=== PATIENT | female | born 1950 | race Caucasian/White ===

== ENCOUNTER 2019-07-26 19:34 | Inpatient (IN) ==
[2019-07-26] MEDS ORDERED: diazePAM 10 MG/2 ML SYRINGE IVP STA (19:48)
[2019-07-26] MEDS ORDERED: *HR* OxyCODONE/APAP 10/325 TABLET PO ONE (22:32)
[2019-07-26] MEDS ORDERED: diazePAM 2 MG TABLET PO STA (22:32)
[2019-07-27 00:04] LABS: Hematocrit 39.7 % (35.3-44.9); Hemoglobin 12.7 g/dL (11.5-15.4); Immature Granulocytes % 0.3 % (0-4); Lymphocytes % 20.4 %; Mean Corpuscular Hemoglobin 28.5 pg (28.0-33.3); Mean Platelet Volume 9.8 fL (9.4-12.4); Monocytes % 3.7 %; Platelet Count 254 K/mcL (140-400); Red Blood Count 4.46 M/mcL (3.82-4.97); Red Cell Distribution Width 12.6 % (11.5-14.5); White Blood Count 6.2 K/mcL (4.3-11.1)
[2019-07-27 00:05] LABS: Basophils % 0.6 %; Eosinophils # 0.1 K/mcL (0.0-0.6); Lymphocytes # 1.3 K/mcL (0.6-4.6); Monocytes # 0.2 K/mcL (0.0-1.3); Neutrophils # 4.6 K/mcL (1.6-8.9)
[2019-07-27 00:19] LABS: Calcium 9.6 mg/dL (8.6-10.3); Potassium 4.7 mEq/L (3.5-5.1)
[2019-07-27] MEDS ORDERED: Naloxone 0.4 MG/ML INJ IVP PRN (03:34)
[2019-07-27] MEDS ORDERED: Dextrose Gel 15 GM/37.5 ML TUBE PO PRN ×2 (03:36)
[2019-07-27] MEDS ORDERED: *HR* Dextrose 50 % in Water (Syg) 50 ML SYRINGE IVP PRN (03:36)
[2019-07-27] MEDS ORDERED: D5% in Water 1,000 ML IVC PRN (03:36)
[2019-07-27] MEDS ORDERED: 0.9 % Sodium Chloride 1,000 ML IVC ONE (03:37)
[2019-07-27] MEDS: *HR* HYDROmorphone 2 MG/ML SYRINGE IVP PRN ×4 (03:43→20:24)
[2019-07-27 05:44] LABS: Hematocrit 35.7 % (35.3-44.9); Mean Corpuscular HGB Conc 31.1 g/dL (31.6-35.5); Mean Corpuscular Hemoglobin 28.2 pg (28.0-33.3); Mean Corpuscular Volume 90.8 fL (83.0-100.0); Platelet Count 231 K/mcL (140-400); Red Blood Count 3.93 M/mcL (3.82-4.97); Red Cell Distribution Width 12.6 % (11.5-14.5); White Blood Count 5.4 K/mcL (4.3-11.1)
[2019-07-27 05:49] LABS: Hemoglobin 11.1 g/dL (11.5-15.4)
[2019-07-27 06:01] LABS: Calcium 9.3 mg/dL (8.6-10.3); Potassium 4.6 mEq/L (3.5-5.1)
[2019-07-27] MEDS ORDERED: Ondansetron 4 MG/2 ML VIAL IVP PRN (08:37)
[2019-07-27] MEDS: Insulin LISPRO 300 UNITS/3 ML VIAL SQ SCH ×4 (08:52→20:34)
[2019-07-27] MEDS ORDERED: *HR* OxyCODONE Immed Rel 5 MG TABLET PO PRN (15:05)
[2019-07-27] MEDS: *HR* Heparin 5,000 UNIT/ML VIAL SQ SCH (16:28)
[2019-07-27 17:24] LABS: Bilirubin,Urine Negative (Negative); Blood,Urine Negative (Negative); Clarity,Urine Cloudy (Clear); Color,Urine Yellow (Yellow); Glucose,Urine (UA) Normal (Normal); Ketones,Urine Negative (Negative); Leukocyte Esterase,Urine Moderate (Negative); Nitrite,Urine Negative (Negative); PH,Urine 5.5 pH Units (5.0-8.0); Protein,Urine Negative (Neg-Trace); Specific Gravity,Urine 1.012 (1.010-1.025); Urobilinogen,Urine Normal (Normal)
[2019-07-27 17:26] LABS: Bacteria,Urine Moderate per hpf (None-Few); Hyaline Casts,Urine None Seen per lpf (None-Few); RBC,Urine 0-3 per hpf (0-3); Squamous Epithelial Cell,Urine Moderate per lpf (None-Few); WBC,Urine 15-30 per hpf (0-3)
[2019-07-28] MEDS: *HR* HYDROmorphone 2 MG/ML SYRINGE IVP PRN ×4 (00:47→20:37)
[2019-07-28] MEDS: *HR* Heparin 5,000 UNIT/ML VIAL SQ SCH ×2 (06:01→17:34)
[2019-07-28 06:03] LABS: Calcium 8.9 mg/dL (8.6-10.3); Potassium 4.5 mEq/L (3.5-5.1)
[2019-07-28] MEDS ORDERED: Furosemide 40 MG TABLET PO SCH (09:00)
[2019-07-28] MEDS ORDERED: FLUoxetine 20 MG CAPSULE PO SCH (09:00)
[2019-07-28] MEDS: Aspirin Enteric Coated 81 MG Tablet PO SCH (09:15)
[2019-07-28] MEDS: Gabapentin 100 MG CAPSULE PO SCH (09:15)
[2019-07-28] MEDS: Insulin LISPRO 300 UNITS/3 ML VIAL SQ SCH ×4 (09:16→20:31)
[2019-07-29] MEDS: *HR* Heparin 5,000 UNIT/ML VIAL SQ SCH ×2 (05:57→18:37)
[2019-07-29 06:25] LABS: Basophils # 0.1 K/mcL (0.0-0.2); Basophils % 1.1 %; Eosinophils # 0.2 K/mcL (0.0-0.6); Eosinophils % 3.3 %; Hematocrit 34.8 % (35.3-44.9); Hemoglobin 11.1 g/dL (11.5-15.4); Immature Granulocytes % 0.2 % (0-4); Lymphocytes # 1.7 K/mcL (0.6-4.6); Lymphocytes % 38.4 %; Mean Corpuscular HGB Conc 31.9 g/dL (31.6-35.5); Mean Corpuscular Hemoglobin 28.5 pg (28.0-33.3); Mean Corpuscular Volume 89.2 fL (83.0-100.0); Mean Platelet Volume 9.5 fL (9.4-12.4); Monocytes # 0.4 K/mcL (0.0-1.3); Monocytes % 8.2 %; Neutrophils # 2.2 K/mcL (1.6-8.9); Platelet Count 218 K/mcL (140-400); Red Cell Distribution Width 12.7 % (11.5-14.5); Segmented Neutrophils % 48.8 %; White Blood Count 4.5 K/mcL (4.3-11.1)
[2019-07-29 06:44] LABS: Calcium 9.2 mg/dL (8.6-10.3); Potassium 4.7 mEq/L (3.5-5.1)
[2019-07-29] MEDS: Pyridoxine (B-6) 50 MG TABLET PO SCH (09:22)
[2019-07-29] MEDS: Cholecalciferol (D-3) 1,000 UNIT (25MCG) TABLET PO SCH (09:22)
[2019-07-29] MEDS: FLUoxetine 20 MG CAPSULE PO SCH (09:22)
[2019-07-29] MEDS: Aspirin Enteric Coated 81 MG Tablet PO SCH (09:22)
[2019-07-29] MEDS: Insulin LISPRO 300 UNITS/3 ML VIAL SQ SCH ×4 (09:23→21:34)
[2019-07-29] MEDS: *HR* OxyCODONE/APAP 5/325 TABLET PO PRN ×3 (09:23→21:34)
[2019-07-29] MEDS: Gabapentin 100 MG CAPSULE PO SCH ×3 (09:29→21:34)
[2019-07-29] MEDS: cefTRIAXone 1,000 MG in Water for inj. (sterile) 10 ML IVP SCH (11:58)
[2019-07-29] MEDS ORDERED: Gabapentin 100 MG CAPSULE PO SCH (21:00)
[2019-07-29] MEDS: Insulin DETEMIR 100 UNIT/ML X5UNITS SQ SCH (21:34)
[2019-07-30] MEDS: *HR* OxyCODONE/APAP 5/325 TABLET PO PRN ×3 (05:21→20:48)
[2019-07-30] MEDS: *HR* Heparin 5,000 UNIT/ML VIAL SQ SCH ×2 (05:22→16:59)
[2019-07-30 07:40] LABS: Calcium 9.1 mg/dL (8.6-10.3); Potassium 4.6 mEq/L (3.5-5.1)
[2019-07-30] MEDS: Pyridoxine (B-6) 50 MG TABLET PO SCH (08:55)
[2019-07-30] MEDS: Cholecalciferol (D-3) 1,000 UNIT (25MCG) TABLET PO SCH (08:55)
[2019-07-30] MEDS: Gabapentin 100 MG CAPSULE PO SCH ×3 (08:55→20:48)
[2019-07-30] MEDS: FLUoxetine 20 MG CAPSULE PO SCH (08:56)
[2019-07-30] MEDS: Aspirin Enteric Coated 81 MG Tablet PO SCH (08:56)
[2019-07-30] MEDS: cefTRIAXone 1,000 MG in Water for inj. (sterile) 10 ML IVP SCH (08:56)
[2019-07-30] MEDS: Insulin LISPRO 300 UNITS/3 ML VIAL SQ SCH ×4 (09:14→20:48)
[2019-07-30] MEDS: Acetaminophen 325 MG TABLET PO PRN ×2 (10:31→15:56)
[2019-07-30] MEDS ORDERED: Morphine Sulfate 2 MG/ML SYRINGE IVP ONE (16:13)
[2019-07-30] MEDS: Insulin DETEMIR 100 UNIT/ML X5UNITS SQ SCH (20:47)
[2019-07-31] MEDS: *HR* OxyCODONE/APAP 5/325 TABLET PO PRN ×4 (03:22→21:42)
[2019-07-31] MEDS: *HR* Heparin 5,000 UNIT/ML VIAL SQ SCH ×2 (05:38→17:23)
[2019-07-31] MEDS: Insulin LISPRO 300 UNITS/3 ML VIAL SQ SCH ×4 (08:29→20:48)
[2019-07-31] MEDS: Furosemide 40 MG TABLET PO SCH (09:05)
[2019-07-31] MEDS: Gabapentin 100 MG CAPSULE PO SCH ×3 (09:05→21:42)
[2019-07-31] MEDS: Pyridoxine (B-6) 50 MG TABLET PO SCH (09:05)
[2019-07-31] MEDS: Cholecalciferol (D-3) 1,000 UNIT (25MCG) TABLET PO SCH (09:06)
[2019-07-31] MEDS: FLUoxetine 20 MG CAPSULE PO SCH (09:06)
[2019-07-31] MEDS: Aspirin Enteric Coated 81 MG Tablet PO SCH (09:07)
[2019-07-31] MEDS: cefTRIAXone 1,000 MG in Water for inj. (sterile) 10 ML IVP SCH (09:07)
[2019-07-31 11:43] LABS: Hematocrit 34.3 % (35.3-44.9); Hemoglobin 10.7 g/dL (11.5-15.4); Mean Corpuscular HGB Conc 31.2 g/dL (31.6-35.5); Mean Corpuscular Hemoglobin 28.8 pg (28.0-33.3); Mean Corpuscular Volume 92.2 fL (83.0-100.0); Mean Platelet Volume 10.3 fL (9.4-12.4); Platelet Count 225 K/mcL (140-400); Red Blood Count 3.72 M/mcL (3.82-4.97); Red Cell Distribution Width 12.5 % (11.5-14.5); White Blood Count 4.4 K/mcL (4.3-11.1)
[2019-07-31 11:57] LABS: Albumin 3.4 g/dL (3.5-5.7); Albumin/Globulin Ratio 1.4 (1.1-2.2); Bilirubin,Total 0.4 mg/dL (0.3-1.0); Calcium 9.1 mg/dL (8.6-10.3); Globulin 2.4 g/dL (2.4-3.5); Potassium 4.7 mEq/L (3.5-5.1); Total Protein 5.8 g/dL (6.4-8.9)
[2019-07-31] MEDS: Sennosides 8.6 MG TABLET PO SCH (15:37)
[2019-07-31] MEDS: Insulin DETEMIR 100 UNIT/ML X5UNITS SQ SCH (21:42)
[2019-08-01] MEDS: *HR* Heparin 5,000 UNIT/ML VIAL SQ SCH ×2 (05:55→20:49)
[2019-08-01] MEDS: Aspirin Enteric Coated 81 MG Tablet PO SCH (07:19)
[2019-08-01] MEDS: Cholecalciferol (D-3) 1,000 UNIT (25MCG) TABLET PO SCH (07:19)
[2019-08-01] MEDS: Furosemide 40 MG TABLET PO SCH (07:19)
[2019-08-01] MEDS: Gabapentin 100 MG CAPSULE PO SCH ×3 (07:19→20:52)
[2019-08-01] MEDS: Pyridoxine (B-6) 50 MG TABLET PO SCH (07:19)
[2019-08-01] MEDS: Sennosides 8.6 MG TABLET PO SCH (07:20)
[2019-08-01] MEDS: cefTRIAXone 1,000 MG in Water for inj. (sterile) 10 ML IVP SCH (07:20)
[2019-08-01] MEDS: FLUoxetine 20 MG CAPSULE PO SCH (07:20)
[2019-08-01] MEDS: *HR* OxyCODONE/APAP 5/325 TABLET PO PRN (07:22)
[2019-08-01] MEDS: Insulin LISPRO 300 UNITS/3 ML VIAL SQ SCH ×3 (07:24→20:49)
[2019-08-01] MEDS ORDERED: *HR* OxyCODONE Immed Rel 5 MG TABLET ONE (11:36)
[2019-08-01] MEDS ORDERED: *HR* HYDROmorphone 2 MG/ML SYRINGE ONE (16:35)
[2019-08-01] MEDS ORDERED: predniSONE 20 MG TABLET ONE (17:46)
[2019-08-01] MEDS: *HR* HYDROmorphone 2 MG/ML SYRINGE IVP PRN (20:52)
[2019-08-01] MEDS: Insulin DETEMIR 100 UNIT/ML X5UNITS SQ SCH (20:52)
[2019-08-01] MEDS ORDERED: *HR* OxyCODONE Immed Rel 5 MG TABLET PO PRN (21:35)
[2019-08-01] MEDS ORDERED: *HR* HYDROmorphone (PF) 1 MG/ML SYRINGE IVP PRN (21:36)
[2019-08-02] MEDS: *HR* HYDROmorphone 2 MG/ML SYRINGE IVP PRN ×2 (06:05→09:39)
[2019-08-02] MEDS: *HR* Heparin 5,000 UNIT/ML VIAL SQ SCH ×2 (06:05→17:07)
[2019-08-02] MEDS ORDERED: predniSONE 20 MG TABLET PO SCH (09:00)
[2019-08-02] MEDS: FLUoxetine 20 MG CAPSULE PO SCH (09:37)
[2019-08-02] MEDS: Sennosides 8.6 MG TABLET PO SCH (09:38)
[2019-08-02] MEDS: Furosemide 40 MG TABLET PO SCH (09:38)
[2019-08-02] MEDS: Cholecalciferol (D-3) 1,000 UNIT (25MCG) TABLET PO SCH (09:38)
[2019-08-02] MEDS: Gabapentin 100 MG CAPSULE PO SCH (09:39)
[2019-08-02] MEDS: Aspirin Enteric Coated 81 MG Tablet PO SCH (09:39)
[2019-08-02] MEDS: Insulin LISPRO 300 UNITS/3 ML VIAL SQ SCH ×4 (09:39→19:45)
[2019-08-02] MEDS: Pyridoxine (B-6) 50 MG TABLET PO SCH (09:39)
[2019-08-02] MEDS: cefTRIAXone 1,000 MG in Water for inj. (sterile) 10 ML IVP SCH (09:40)
[2019-08-02] MEDS: 0.9 % Sodium Chloride 1,000 ML IVC SCH (13:41)
[2019-08-02 15:00] LABS: Hematocrit 37.4 % (35.3-44.9); Hemoglobin 12.2 g/dL (11.5-15.4); Mean Corpuscular HGB Conc 32.6 g/dL (31.6-35.5); Mean Corpuscular Hemoglobin 28.7 pg (28.0-33.3); Mean Platelet Volume 9.7 fL (9.4-12.4); Platelet Count 258 K/mcL (140-400); Red Blood Count 4.25 M/mcL (3.82-4.97); Red Cell Distribution Width 12.7 % (11.5-14.5); White Blood Count 7.5 K/mcL (4.3-11.1)
[2019-08-02 15:20] LABS: Albumin 3.8 g/dL (3.5-5.7); Albumin/Globulin Ratio 1.4 (1.1-2.2); Bilirubin,Total 0.4 mg/dL (0.3-1.0); Calcium 9.6 mg/dL (8.6-10.3); Globulin 2.7 g/dL (2.4-3.5); Potassium 4.9 mEq/L (3.5-5.1); Total Protein 6.5 g/dL (6.4-8.9)
[2019-08-02] MEDS: *HR* OxyCODONE/APAP 10/325 TABLET PO PRN (17:06)
[2019-08-02] MEDS: MethylPREDNISolone 40 MG/ML VIAL IVP SCH ×2 (17:07→23:57)
[2019-08-02] MEDS: Gabapentin 300 MG CAPSULE PO SCH (19:44)
[2019-08-02] MEDS: Insulin DETEMIR 100 UNIT/ML X5UNITS SQ SCH (20:32)
[2019-08-03] MEDS: 0.9 % Sodium Chloride 1,000 ML IVC SCH (01:33)
[2019-08-03] MEDS: *HR* Heparin 5,000 UNIT/ML VIAL SQ SCH (05:12)
[2019-08-03] MEDS: Cholecalciferol (D-3) 1,000 UNIT (25MCG) TABLET PO SCH (07:32)
[2019-08-03] MEDS: Aspirin Enteric Coated 81 MG Tablet PO SCH (07:32)
[2019-08-03] MEDS: *HR* OxyCODONE/APAP 10/325 TABLET PO PRN (07:32)
[2019-08-03] MEDS: Furosemide 40 MG TABLET PO SCH (07:33)
[2019-08-03] MEDS: Sennosides 8.6 MG TABLET PO SCH (07:33)
[2019-08-03] MEDS: Gabapentin 300 MG CAPSULE PO SCH (07:33)
[2019-08-03] MEDS: FLUoxetine 20 MG CAPSULE PO SCH (07:33)
[2019-08-03] MEDS: cefTRIAXone 1,000 MG in Water for inj. (sterile) 10 ML IVP SCH (07:34)
[2019-08-03] MEDS: MethylPREDNISolone 40 MG/ML VIAL IVP SCH (07:34)
[2019-08-03] MEDS: Pyridoxine (B-6) 50 MG TABLET PO SCH (07:34)
[2019-08-03] MEDS: Insulin LISPRO 300 UNITS/3 ML VIAL SQ SCH (07:45)
[2019-08-03] MEDS ORDERED: Insulin LISPRO 300 UNITS/3 ML VIAL SQ SCH (08:49)
[2019-08-03] MEDS ORDERED: GI Cocktail 40 ML EACH PO PRN (10:36)
[2019-08-03] MEDS ORDERED: *HR* OxyCODONE/APAP 10/325 TABLET PO SCH (12:00)
[2019-08-03] MEDS ORDERED: Methocarbamol 500 MG TABLET PO PRN (13:02)
[2019-08-03] MEDS ORDERED: Acetaminophen 325 MG TABLET PO PRN (13:03)
[2019-08-03] MEDS ORDERED: Gabapentin 300 MG CAPSULE PO SCH (15:00)
[2019-08-03 15:14] VITALS: BP 160/75
[2019-08-03] MEDS ORDERED: MethylPREDNISolone 40 MG/ML VIAL IVP SCH (18:00)
[2019-08-03] MEDS ORDERED: Insulin DETEMIR 100 UNIT/ML X5UNITS SQ SCH (21:00)
== END 2019-08-03 17:15 | DRG 552 ==
LOC: 3BNU 19:34 → EMEROOARM 19:34 → SUATTDRO 07-27 01:42 → 3BNU 07-27 01:54
PROVIDERS: ADMIT Internal Medicine; ATTEND Internal Medicine

== ENCOUNTER 2019-08-21 14:33 | Inpatient (IN) ==
[2019-08-21] MEDS ORDERED: Ondansetron 4 MG/2 ML VIAL IVP ONE (16:21)
[2019-08-21] MEDS ORDERED: Dexamethasone 4 MG/ML VIAL IVP ONE (16:21)
[2019-08-21] MEDS ORDERED: *HR* FentaNYL (PF) 100 MCG/2 ML VIAL IVP ONE (16:21)
[2019-08-21 19:39] LABS: Hematocrit 37.1 % (35.3-44.9); Hemoglobin 11.5 g/dL (11.5-15.4); Mean Corpuscular Hemoglobin 28.5 pg (28.0-33.3); Mean Corpuscular Volume 92.1 fL (83.0-100.0); Mean Platelet Volume 9.8 fL (9.4-12.4); Platelet Count 236 K/mcL (140-400); Red Blood Count 4.03 M/mcL (3.82-4.97); Red Cell Distribution Width 13.5 % (11.5-14.5); White Blood Count 4.8 K/mcL (4.3-11.1)
[2019-08-21 19:57] LABS: Calcium 9.4 mg/dL (8.6-10.3); Potassium 4.9 mEq/L (3.5-5.1)
[2019-08-21] MEDS ORDERED: Naloxone 0.4 MG/ML INJ IVP PRN (21:25)
[2019-08-21] MEDS ORDERED: Dextrose Gel 15 GM/37.5 ML TUBE PO PRN ×2 (21:58)
[2019-08-21] MEDS ORDERED: *HR* Dextrose 50 % in Water (Syg) 50 ML SYRINGE IVP PRN (21:58)
[2019-08-21] MEDS ORDERED: D5% in Water 1,000 ML IVC PRN (21:58)
[2019-08-21] MEDS: *HR* OxyCODONE Immed Rel 5 MG TABLET PO PRN (22:23)
[2019-08-22] MEDS: *HR* OxyCODONE Immed Rel 5 MG TABLET PO PRN ×3 (05:23→18:37)
[2019-08-22 07:12] LABS: Mean Corpuscular HGB Conc 30.6 g/dL (31.6-35.5); Mean Corpuscular Hemoglobin 28.3 pg (28.0-33.3); Mean Corpuscular Volume 92.5 fL (83.0-100.0); Mean Platelet Volume 10.1 fL (9.4-12.4); Platelet Count 273 K/mcL (140-400); Red Blood Count 3.89 M/mcL (3.82-4.97); Red Cell Distribution Width 13.5 % (11.5-14.5); White Blood Count 4.5 K/mcL (4.3-11.1)
[2019-08-22 07:32] LABS: Calcium 9.3 mg/dL (8.6-10.3); Potassium 5.3 mEq/L (3.5-5.1)
[2019-08-22] MEDS ORDERED: traMADol 50 MG TABLET PO ONE (08:35)
[2019-08-22] MEDS: Insulin LISPRO 300 UNITS/3 ML VIAL SQ SCH ×4 (08:46→22:18)
[2019-08-22] MEDS: Aspirin Enteric Coated 81 MG Tablet PO SCH (08:46)
[2019-08-22] MEDS: Dexamethasone 10 MG/ML VIAL IVP SCH (08:46)
[2019-08-22] MEDS: FLUoxetine 20 MG CAPSULE PO SCH (08:46)
[2019-08-22] MEDS: Insulin DETEMIR 100 UNIT/ML X5UNITS SQ SCH ×2 (11:30→22:19)
[2019-08-22 12:44] LABS: Bilirubin,Urine Negative (Negative); Blood,Urine Negative (Negative); Clarity,Urine Clear (Clear); Color,Urine Yellow (Yellow); Glucose,Urine (UA) 500 mg/dL (Normal); Ketones,Urine 15 mg/dL (Negative); Leukocyte Esterase,Urine Negative (Negative); Nitrite,Urine Negative (Negative); Protein,Urine Negative (Neg-Trace); Specific Gravity,Urine 1.016 (1.010-1.025); Urobilinogen,Urine Normal (Normal)
[2019-08-22] MEDS: *HR* Heparin 5,000 UNIT/ML VIAL SQ SCH (17:29)
[2019-08-23] MEDS: *HR* OxyCODONE Immed Rel 5 MG TABLET PO PRN ×4 (00:53→20:22)
[2019-08-23] MEDS: *HR* Heparin 5,000 UNIT/ML VIAL SQ SCH ×2 (05:54→17:36)
[2019-08-23 06:58] LABS: Hematocrit 32.6 % (35.3-44.9); Hemoglobin 10.7 g/dL (11.5-15.4); Immature Granulocytes % 0.4 % (0-4); Lymphocytes % 13.8 %; Mean Corpuscular HGB Conc 32.8 g/dL (31.6-35.5); Mean Corpuscular Hemoglobin 29.2 pg (28.0-33.3); Mean Corpuscular Volume 89.1 fL (83.0-100.0); Mean Platelet Volume 10.1 fL (9.4-12.4); Monocytes # 0.3 K/mcL (0.0-1.3); Monocytes % 3.4 %; Neutrophils # 6.1 K/mcL (1.6-8.9); Platelet Count 286 K/mcL (140-400); Red Blood Count 3.66 M/mcL (3.82-4.97); Red Cell Distribution Width 13.2 % (11.5-14.5); Segmented Neutrophils % 82.4 %
[2019-08-23 07:00] LABS: White Blood Count 7.4 K/mcL (4.3-11.1)
[2019-08-23 07:23] LABS: Magnesium 2.1 mg/dL (1.6-2.6); Phosphorous 3.3 mg/dL (2.7-4.5); Potassium 5.1 mEq/L (3.5-5.1)
[2019-08-23] MEDS: FLUoxetine 20 MG CAPSULE PO SCH (09:43)
[2019-08-23] MEDS: Insulin LISPRO 300 UNITS/3 ML VIAL SQ SCH ×4 (09:43→20:23)
[2019-08-23] MEDS: Aspirin Enteric Coated 81 MG Tablet PO SCH (09:43)
[2019-08-23] MEDS: Dexamethasone 10 MG/ML VIAL IVP SCH (09:44)
[2019-08-23] MEDS: Insulin DETEMIR 100 UNIT/ML X5UNITS SQ SCH ×2 (09:48→20:23)
[2019-08-24] MEDS: *HR* OxyCODONE Immed Rel 5 MG TABLET PO PRN ×3 (04:02→17:08)
[2019-08-24] MEDS: *HR* Heparin 5,000 UNIT/ML VIAL SQ SCH ×2 (05:08→17:08)
[2019-08-24 05:40] LABS: Calcium 9.1 mg/dL (8.6-10.3); Phosphorous 3.7 mg/dL (2.7-4.5); Potassium 5.5 mEq/L (3.5-5.1)
[2019-08-24] MEDS: predniSONE 20 MG TABLET PO SCH (09:07)
[2019-08-24] MEDS: Aspirin Enteric Coated 81 MG Tablet PO SCH (09:07)
[2019-08-24] MEDS: Furosemide 40 MG TABLET PO SCH (09:10)
[2019-08-24] MEDS: Insulin DETEMIR 100 UNIT/ML X5UNITS SQ SCH ×2 (09:11→20:43)
[2019-08-24] MEDS: FLUoxetine 20 MG CAPSULE PO SCH (09:11)
[2019-08-24] MEDS: Insulin LISPRO 300 UNITS/3 ML VIAL SQ SCH ×4 (09:12→20:37)
[2019-08-24] MEDS ORDERED: *HR* HYDROcodone/Acet 5/325 mg TABLET PO ONE (13:54)
[2019-08-24] MEDS ORDERED: Methocarbamol 500 MG TABLET PO PRN (16:03)
[2019-08-24] MEDS ORDERED: Acetaminophen 325 MG TABLET PO PRN (16:03)
[2019-08-24] MEDS: *HR* FentaNYL PATCH 12 MCG PATCH TD SCH (17:51)
[2019-08-25] MEDS: *HR* OxyCODONE Immed Rel 5 MG TABLET PO PRN ×3 (01:40→17:14)
[2019-08-25] MEDS: *HR* Heparin 5,000 UNIT/ML VIAL SQ SCH ×2 (05:33→17:15)
[2019-08-25 08:17] LABS: Magnesium 1.7 mg/dL (1.6-2.6); Potassium 4.2 mEq/L (3.5-5.1)
[2019-08-25] MEDS: predniSONE 20 MG TABLET PO SCH (08:36)
[2019-08-25] MEDS: Aspirin Enteric Coated 81 MG Tablet PO SCH (08:36)
[2019-08-25] MEDS: FLUoxetine 20 MG CAPSULE PO SCH (08:36)
[2019-08-25] MEDS: Multivit/Ca/Min/Fe/FA 1 TAB TABLET PO SCH (08:36)
[2019-08-25] MEDS: Furosemide 40 MG TABLET PO SCH (08:36)
[2019-08-25] MEDS: Cholecalciferol (D-3) 1,000 UNIT (25MCG) TABLET PO SCH (08:36)
[2019-08-25] MEDS: Insulin DETEMIR 100 UNIT/ML X5UNITS SQ SCH ×2 (08:40→20:42)
[2019-08-25] MEDS: Insulin LISPRO 300 UNITS/3 ML VIAL SQ SCH ×4 (08:40→20:43)
[2019-08-25] MEDS: Pyridoxine (B-6) 50 MG TABLET PO SCH (12:34)
[2019-08-25] MEDS: *HR* HYDROcodone/Acet 5/325 mg TABLET PO PRN ×2 (12:34→20:42)
[2019-08-25] MEDS: Methocarbamol 750 MG TABLET PO SCH (20:42)
[2019-08-25] MEDS: Gabapentin 300 MG CAPSULE PO SCH (20:42)
[2019-08-26] MEDS: *HR* Heparin 5,000 UNIT/ML VIAL SQ SCH ×2 (05:30→18:02)
[2019-08-26] MEDS: *HR* HYDROcodone/Acet 5/325 mg TABLET PO PRN ×3 (05:30→22:38)
[2019-08-26] MEDS: Insulin LISPRO 300 UNITS/3 ML VIAL SQ SCH ×5 (07:27→20:35)
[2019-08-26] MEDS: Insulin DETEMIR 100 UNIT/ML X5UNITS SQ SCH ×3 (08:28→20:34)
[2019-08-26] MEDS: Gabapentin 300 MG CAPSULE PO SCH ×2 (08:29→20:34)
[2019-08-26] MEDS: Aspirin Enteric Coated 81 MG Tablet PO SCH (08:29)
[2019-08-26] MEDS: Cholecalciferol (D-3) 1,000 UNIT (25MCG) TABLET PO SCH (08:29)
[2019-08-26] MEDS: FLUoxetine 20 MG CAPSULE PO SCH (08:29)
[2019-08-26] MEDS: predniSONE 20 MG TABLET PO SCH (08:29)
[2019-08-26] MEDS: Methocarbamol 750 MG TABLET PO SCH ×3 (08:30→20:34)
[2019-08-26] MEDS: Multivit/Ca/Min/Fe/FA 1 TAB TABLET PO SCH (08:30)
[2019-08-26] MEDS: Pyridoxine (B-6) 50 MG TABLET PO SCH (08:30)
[2019-08-26] MEDS: Furosemide 40 MG TABLET PO SCH (08:30)
[2019-08-27 04:39] LABS: Eosinophils % 0.6 %; Hematocrit 38.1 % (35.3-44.9); Hemoglobin 11.9 g/dL (11.5-15.4); Immature Granulocytes % 0.4 % (0-4); Lymphocytes # 1.4 K/mcL (0.6-4.6); Lymphocytes % 27.1 %; Mean Corpuscular HGB Conc 31.2 g/dL (31.6-35.5); Mean Corpuscular Hemoglobin 28.4 pg (28.0-33.3); Mean Corpuscular Volume 90.9 fL (83.0-100.0); Monocytes # 0.4 K/mcL (0.0-1.3); Neutrophils # 3.4 K/mcL (1.6-8.9); Platelet Count 222 K/mcL (140-400); Red Blood Count 4.19 M/mcL (3.82-4.97); Red Cell Distribution Width 13.2 % (11.5-14.5); Segmented Neutrophils % 64.9 %; White Blood Count 5.2 K/mcL (4.3-11.1)
[2019-08-27 05:01] LABS: Calcium 8.7 mg/dL (8.6-10.3); Magnesium 1.9 mg/dL (1.6-2.6); Potassium 3.9 mEq/L (3.5-5.1)
[2019-08-27] MEDS: *HR* Heparin 5,000 UNIT/ML VIAL SQ SCH ×2 (05:22→17:53)
[2019-08-27 08:26] LABS: Estimated Average Glucose 197 mg/dl
[2019-08-27] MEDS ORDERED: Ringers Solution, Lactated 1,000 ML IVC SCH (08:30)
[2019-08-27] MEDS: Insulin LISPRO 300 UNITS/3 ML VIAL SQ SCH ×4 (09:21→21:10)
[2019-08-27] MEDS: Cholecalciferol (D-3) 1,000 UNIT (25MCG) TABLET PO SCH (09:32)
[2019-08-27] MEDS: Gabapentin 300 MG CAPSULE PO SCH ×2 (09:33→21:09)
[2019-08-27] MEDS: Aspirin Enteric Coated 81 MG Tablet PO SCH (09:33)
[2019-08-27] MEDS: FLUoxetine 20 MG CAPSULE PO SCH (09:33)
[2019-08-27] MEDS: Furosemide 40 MG TABLET PO SCH (09:33)
[2019-08-27] MEDS: Methocarbamol 750 MG TABLET PO SCH ×3 (09:33→21:09)
[2019-08-27] MEDS: predniSONE 20 MG TABLET PO SCH (09:33)
[2019-08-27] MEDS: Multivit/Ca/Min/Fe/FA 1 TAB TABLET PO SCH (09:33)
[2019-08-27] MEDS: Pyridoxine (B-6) 50 MG TABLET PO SCH (09:35)
[2019-08-27] MEDS: *HR* OxyCODONE/APAP 10/325 TABLET PO PRN (09:39)
[2019-08-27] MEDS: Insulin DETEMIR 100 UNIT/ML X5UNITS SQ SCH ×2 (10:31→21:10)
[2019-08-27] MEDS: *HR* FentaNYL PATCH 12 MCG PATCH TD SCH (17:53)
[2019-08-28 01:17] LABS: Hematocrit 36.5 % (35.3-44.9); Hemoglobin 11.9 g/dL (11.5-15.4); Immature Granulocytes % 0.2 % (0-4); Lymphocytes # 0.8 K/mcL (0.6-4.6); Lymphocytes % 14.7 %; Mean Corpuscular HGB Conc 32.6 g/dL (31.6-35.5); Mean Corpuscular Hemoglobin 29.3 pg (28.0-33.3); Mean Corpuscular Volume 89.9 fL (83.0-100.0); Mean Platelet Volume 10.3 fL (9.4-12.4); Monocytes # 0.2 K/mcL (0.0-1.3); Monocytes % 4.4 %; Neutrophils # 4.5 K/mcL (1.6-8.9); Platelet Count 216 K/mcL (140-400); Red Blood Count 4.06 M/mcL (3.82-4.97); Red Cell Distribution Width 13.1 % (11.5-14.5); Segmented Neutrophils % 80.7 %; White Blood Count 5.5 K/mcL (4.3-11.1)
[2019-08-28 01:34] LABS: Calcium 8.1 mg/dL (8.6-10.3); Magnesium 1.7 mg/dL (1.6-2.6); Potassium 4.4 mEq/L (3.5-5.1)
[2019-08-28] MEDS: *HR* Heparin 5,000 UNIT/ML VIAL SQ SCH (05:56)
[2019-08-28 08:03] VITALS: BP 130/70
[2019-08-28] MEDS: predniSONE 20 MG TABLET PO SCH (08:19)
[2019-08-28] MEDS: *HR* HYDROcodone/Acet 5/325 mg TABLET PO PRN (08:19)
[2019-08-28] MEDS: FLUoxetine 20 MG CAPSULE PO SCH (08:19)
[2019-08-28] MEDS: Multivit/Ca/Min/Fe/FA 1 TAB TABLET PO SCH (08:20)
[2019-08-28] MEDS: Furosemide 40 MG TABLET PO SCH (08:20)
[2019-08-28] MEDS: Pyridoxine (B-6) 50 MG TABLET PO SCH (08:20)
[2019-08-28] MEDS: Aspirin Enteric Coated 81 MG Tablet PO SCH (08:20)
[2019-08-28] MEDS: Gabapentin 300 MG CAPSULE PO SCH (08:20)
[2019-08-28] MEDS: Methocarbamol 750 MG TABLET PO SCH (08:20)
[2019-08-28] MEDS: Cholecalciferol (D-3) 1,000 UNIT (25MCG) TABLET PO SCH (08:20)
[2019-08-28] MEDS: Insulin LISPRO 300 UNITS/3 ML VIAL SQ SCH (08:21)
[2019-08-28] MEDS: Insulin DETEMIR 100 UNIT/ML X5UNITS SQ SCH (09:15)
[2019-08-28] MEDS: *HR* OxyCODONE/APAP 10/325 TABLET PO PRN (12:04)
== END 2019-08-28 13:56 | DRG 552 ==
LOC: EMEROOARM 14:33 → 3BNU 14:33 → SUATTDRO 19:59 → 3BNU 20:49 → SUATTDRO 08-25 13:15
PROVIDERS: ADMIT Internal Medicine; ATTEND Pharmacist

== ENCOUNTER 2021-11-01 13:02 | Observation (INO) ==
[2021-11-01 16:14] LABS: Basophils # 0.1 K/mcL (0.0-0.2); Basophils % 1.2 %; Eosinophils # 0.1 K/mcL (0.0-0.6); Hematocrit 28.8 % (35.3-44.9); Hemoglobin 8.8 g/dL (11.5-15.4); Immature Granulocytes % 0.2 % (0-4); Lymphocytes # 1.8 K/mcL (0.6-4.6); Mean Corpuscular HGB Conc 30.6 g/dL (31.6-35.5); Mean Corpuscular Hemoglobin 28.1 pg (28.0-33.3); Mean Platelet Volume 10.1 fL (9.4-12.4); Monocytes # 0.2 K/mcL (0.0-1.3); Monocytes % 4.6 %; Neutrophils # 2.9 K/mcL (1.6-8.9); Platelet Count 196 K/mcL (140-400); Red Blood Count 3.13 M/mcL (3.82-4.97); Red Cell Distribution Width 13.2 % (11.5-14.5)
[2021-11-01] MEDS ORDERED: 0.9 % Sodium Chloride 1,000 ML IVC ONE (16:19)
[2021-11-01 16:33] LABS: Influenza A PCR Negative (Negative); Influenza B PCR Negative (Negative); Resp. Syncytial Virus PCR Negative (Negative)
[2021-11-01 16:36] LABS: SARS-CoV-2 by PCR (In House) Negative (Negative)
[2021-11-01 16:36] LABS: Alanine Aminotransferase 13 Units/L (7-52); Albumin 3.3 g/dL (3.5-5.7); Albumin/Globulin Ratio 1.6 (1.1-2.2); Alkaline Phosphatase 75 Units/L (34-104); Aspartate Amino Transferase 13 Units/L (13-39); BUN/Creatinine Ratio 51 (6-26); Bilirubin,Direct 0.1 mg/dL (0.0-0.2); Bilirubin,Indirect 0.3 mg/dL (0.0-1.0); Bilirubin,Total 0.4 mg/dL (0.3-1.0); Blood Urea Nitrogen 87 mg/dL (8-23); Calcium 8.8 mg/dL (8.6-10.3); Carbon Dioxide 28 mEq/L (23-29); Chloride 107 mEq/L (98-107); Globulin 2.1 g/dL (2.4-3.5); Glucose 246 mg/dL (70-105); Osmolality,Calculated 327 (280-300); Potassium 4.4 mEq/L (3.5-5.1); Sodium 141 mEq/L (136-145); Total Protein 5.4 g/dL (6.4-8.9); Troponin I < 0.03 ng/mL (< 0.04); eGFR For African Americans 35 (> 60); eGFR For Non-African Americans 29 (> 60)
[2021-11-01 16:42] LABS: Bilirubin,Urine Negative (Negative); Blood,Urine Negative (Negative); Clarity,Urine Clear (Clear); Color,Urine Colorless (Yellow); Glucose,Urine (UA) Normal (Normal); Ketones,Urine Negative (Negative); Leukocyte Esterase,Urine Negative (Negative); Nitrite,Urine Negative (Negative); Protein,Urine Negative (Neg-Trace); Urobilinogen,Urine Normal (Normal)
[2021-11-01] MEDS ORDERED: Pantoprazole 40 MG VIAL IVP STA (17:05)
[2021-11-01] MEDS ORDERED: Naloxone 0.4 MG/ML INJ IVP PRN (17:36)
[2021-11-01] MEDS ORDERED: Ondansetron 4 MG/2 ML VIAL IVP PRN (17:36)
[2021-11-01] MEDS ORDERED: *HR* Dextrose 50 % in Water (Syg) 50 ML SYRINGE IVP PRN (17:39)
[2021-11-01] MEDS ORDERED: Dextrose Gel 15 GM/37.5 ML TUBE PO PRN ×2 (17:39)
[2021-11-01] MEDS ORDERED: D5% in Water 1,000 ML IVC PRN (17:39)
[2021-11-01] MEDS ORDERED: Ringers Solution, Lactated 1,000 ML IVC SCH (17:45)
[2021-11-01] MEDS: Gabapentin 300 MG CAPSULE PO SCH ×2 (20:24→20:32)
[2021-11-01] MEDS: traZODone 50 MG TABLET PO SCH (20:26)
[2021-11-01] MEDS: Insulin LISPRO 300 UNITS/3 ML VIAL SUBQ SCH (20:28)
[2021-11-01] MEDS: Insulin DETEMIR 100 UNIT/ML X5UNITS SUBQ SCH (20:30)
[2021-11-01] MEDS: Pantoprazole 40 MG VIAL IVP SCH (20:31)
[2021-11-01 21:17] LABS: Hematocrit 28.3 % (35.3-44.9); Hemoglobin 8.6 g/dL (11.5-15.4)
[2021-11-02 01:31] LABS: Hematocrit 26.1 % (35.3-44.9); Hemoglobin 8.3 g/dL (11.5-15.4); Immature Granulocytes % 1.2 % (0-4); Mean Corpuscular HGB Conc 31.8 g/dL (31.6-35.5); Red Cell Distribution Width 13.3 % (11.5-14.5)
[2021-11-02 01:33] LABS: Basophils # 0.1 K/mcL (0.0-0.2); Basophils % 1.2 %; Eosinophils # 0.2 K/mcL (0.0-0.6); Eosinophils % 3.7 %; Immature Platelets 3.8 % (1.1-6.1); Lymphocytes # 2.4 K/mcL (0.6-4.6); Lymphocytes % 46.2 %; Mean Corpuscular Hemoglobin 27.9 pg (28.0-33.3); Mean Corpuscular Volume 87.9 fL (83.0-100.0); Mean Platelet Volume 10.7 fL (9.4-12.4); Monocytes # 0.3 K/mcL (0.0-1.3); Monocytes % 6.6 %; Neutrophils # 2.1 K/mcL (1.6-8.9); Platelet Count 188 K/mcL (140-400); Red Blood Count 2.97 M/mcL (3.82-4.97); Segmented Neutrophils % 41.1 %; White Blood Count 5.2 K/mcL (4.3-11.1)
[2021-11-02] MEDS: Insulin LISPRO 300 UNITS/3 ML VIAL SUBQ SCH ×4 (07:11→20:20)
[2021-11-02 07:58] LABS: Calcium 8.7 mg/dL (8.6-10.3); Potassium 4.2 mEq/L (3.5-5.1)
[2021-11-02] MEDS: Gabapentin 300 MG CAPSULE PO SCH ×3 (08:30→20:22)
[2021-11-02] MEDS: Pantoprazole 40 MG VIAL IVP SCH ×2 (08:30→20:21)
[2021-11-02] MEDS: FLUoxetine 20 MG CAPSULE PO SCH (08:30)
[2021-11-02] MEDS ORDERED: SODIUM CHLORIDE/NAHCO3/KCL/PEG 4,000 ML SOLN.RECON PO ONE (17:00)
[2021-11-02] MEDS: Insulin DETEMIR 100 UNIT/ML X5UNITS SUBQ SCH (20:20)
[2021-11-02] MEDS: traZODone 50 MG TABLET PO SCH (20:22)
[2021-11-03 06:27] LABS: Basophils # 0.1 K/mcL (0.0-0.2); Basophils % 1.1 %; Eosinophils # 0.2 K/mcL (0.0-0.6); Eosinophils % 3.6 %; Hematocrit 23.8 % (35.3-44.9); Hemoglobin 7.4 g/dL (11.5-15.4); Immature Granulocytes % 0.2 % (0-4); Lymphocytes # 1.7 K/mcL (0.6-4.6); Lymphocytes % 34.9 %; Mean Corpuscular HGB Conc 31.1 g/dL (31.6-35.5); Mean Corpuscular Hemoglobin 28.5 pg (28.0-33.3); Mean Corpuscular Volume 91.5 fL (83.0-100.0); Mean Platelet Volume 10.8 fL (9.4-12.4); Monocytes # 0.3 K/mcL (0.0-1.3); Monocytes % 5.9 %; Neutrophils # 2.6 K/mcL (1.6-8.9); Platelet Count 189 K/mcL (140-400); Red Cell Distribution Width 13.2 % (11.5-14.5); Segmented Neutrophils % 54.3 %; White Blood Count 4.8 K/mcL (4.3-11.1)
[2021-11-03 06:42] LABS: Calcium 8.3 mg/dL (8.6-10.3); Potassium 4.2 mEq/L (3.5-5.1)
[2021-11-03] MEDS: Insulin LISPRO 300 UNITS/3 ML VIAL SUBQ SCH ×4 (07:09→20:12)
[2021-11-03] MEDS: Pantoprazole 40 MG VIAL IVP SCH (07:46)
[2021-11-03] MEDS ORDERED: Lidocaine -MPF 2% 5 ML VIAL ONE (09:39)
[2021-11-03] MEDS ORDERED: *HR* Propofol 200 MG/20 ML VIAL IVP ONE (09:39)
[2021-11-03] MEDS ORDERED: EPHEDrine 50 MG/ML VIAL ONE (09:55)
[2021-11-03] MEDS: Gabapentin 300 MG CAPSULE PO SCH ×3 (10:44→20:21)
[2021-11-03] MEDS: Cholecalciferol (D-3) 1,000 UNIT (25MCG) TABLET PO SCH (10:44)
[2021-11-03] MEDS: FLUoxetine 20 MG CAPSULE PO SCH (10:44)
[2021-11-03] MEDS: carvediloL 25 MG TABLET PO SCH (16:39)
[2021-11-03] MEDS: Furosemide 20 MG TABLET PO SCH (16:39)
[2021-11-03] MEDS: Insulin DETEMIR 100 UNIT/ML X5UNITS SUBQ SCH (20:21)
[2021-11-04 05:09] LABS: Basophils % 0.7 %; Eosinophils # 0.2 K/mcL (0.0-0.6); Eosinophils % 3.8 %; Hematocrit 22.2 % (35.3-44.9); Hemoglobin 7.1 g/dL (11.5-15.4); Immature Granulocytes % 0.2 % (0-4); Lymphocytes # 1.5 K/mcL (0.6-4.6); Lymphocytes % 35.6 %; Mean Corpuscular Hemoglobin 29.2 pg (28.0-33.3); Mean Corpuscular Volume 91.4 fL (83.0-100.0); Mean Platelet Volume 9.8 fL (9.4-12.4); Monocytes # 0.3 K/mcL (0.0-1.3); Monocytes % 5.9 %; Neutrophils # 2.3 K/mcL (1.6-8.9); Platelet Count 171 K/mcL (140-400); Red Blood Count 2.43 M/mcL (3.82-4.97); Red Cell Distribution Width 13.2 % (11.5-14.5); Segmented Neutrophils % 53.8 %; White Blood Count 4.2 K/mcL (4.3-11.1)
[2021-11-04 05:27] LABS: Calcium 8.4 mg/dL (8.6-10.3); Potassium 4.6 mEq/L (3.5-5.1)
[2021-11-04] MEDS: carvediloL 25 MG TABLET PO SCH ×2 (07:40→16:50)
[2021-11-04] MEDS: Furosemide 20 MG TABLET PO SCH ×2 (07:40→16:50)
[2021-11-04] MEDS: Gabapentin 300 MG CAPSULE PO SCH ×3 (07:40→19:57)
[2021-11-04] MEDS: Cholecalciferol (D-3) 1,000 UNIT (25MCG) TABLET PO SCH (07:40)
[2021-11-04] MEDS: Insulin LISPRO 300 UNITS/3 ML VIAL SUBQ SCH ×4 (07:42→19:57)
[2021-11-04 13:31] LABS: Hematocrit 23.9 % (35.3-44.9); Hemoglobin 7.5 g/dL (11.5-15.4)
[2021-11-04] MEDS ORDERED: Acetaminophen 325 MG TABLET PO ONE (13:50)
[2021-11-04] MEDS: Insulin DETEMIR 100 UNIT/ML X5UNITS SUBQ SCH (19:58)
[2021-11-05] MEDS: Insulin LISPRO 300 UNITS/3 ML VIAL SUBQ SCH ×4 (08:18→20:53)
[2021-11-05 08:44] LABS: Hematocrit 25.9 % (35.3-44.9)
[2021-11-05 09:07] LABS: Calcium 8.7 mg/dL (8.6-10.3); Potassium 3.9 mEq/L (3.5-5.1)
[2021-11-05] MEDS: Cholecalciferol (D-3) 1,000 UNIT (25MCG) TABLET PO SCH (09:10)
[2021-11-05] MEDS: carvediloL 25 MG TABLET PO SCH ×2 (09:10→18:18)
[2021-11-05] MEDS: Furosemide 20 MG TABLET PO SCH ×2 (09:11→18:18)
[2021-11-05] MEDS: Gabapentin 300 MG CAPSULE PO SCH ×3 (09:11→20:53)
[2021-11-05] MEDS: Insulin DETEMIR 100 UNIT/ML X5UNITS SUBQ SCH (20:53)
[2021-11-06 01:27] LABS: Hematocrit 22.5 % (35.3-44.9)
[2021-11-06] MEDS: Insulin LISPRO 300 UNITS/3 ML VIAL SUBQ SCH ×3 (07:41→16:59)
[2021-11-06] MEDS: Cholecalciferol (D-3) 1,000 UNIT (25MCG) TABLET PO SCH (09:09)
[2021-11-06] MEDS: Furosemide 20 MG TABLET PO SCH ×2 (09:09→15:23)
[2021-11-06] MEDS: Gabapentin 300 MG CAPSULE PO SCH ×2 (09:09→15:23)
[2021-11-06] MEDS: carvediloL 25 MG TABLET PO SCH ×2 (09:09→15:23)
[2021-11-06] MEDS ORDERED: Acetaminophen 325 MG TABLET PO PRN (10:23)
[2021-11-06 13:21] LABS: Hematocrit 24.6 % (35.3-44.9); Hemoglobin 7.7 g/dL (11.5-15.4)
[2021-11-06 16:10] VITALS: BP 123/69; PULSE 68; TEMP 97.5; O2SAT 95
[2021-11-06 16:38] LABS: Influenza A PCR Negative (Negative); Influenza B PCR Negative (Negative); Resp. Syncytial Virus PCR Negative (Negative)
[2021-11-06 17:46] LABS: SARS-CoV-2 by PCR (In House) Negative (Negative)
== END 2021-11-06 18:55 | disposition home health service (06) ==
LOC: 2ANU 13:02 → EMEROOARM 13:02 → SUATTDRO 18:18 → 2ANU 19:48
PROVIDERS: ADMIT Student in an Organized Health Care Education/Training Program; ATTEND Family Medicine
PROC: ENDOEBX (2021-11-03 08:50)